=== PATIENT | female | born 1975 | race Hispanic/Latino ===

== ENCOUNTER 2016-11-21 13:14 | Emergency (ER) | payer BC ==
[2016-11-21 13:28] VITALS: BMI 27.4
[2016-11-21 13:32] VITALS: TEMP 99.3; O2SAT 100
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
[2016-11-21 15:32] LABS: BLOOD GAS HEMOGLOBIN 14.4 g/dL (11.7-17.4); CARBOXYHEMOGLOBIN 2.3 % (0.5-1.5); HHB 56.8 % (0-5); METHEMOGLOBIN 0.7 % (0.0-3.0); VENOUS BLOOD GAS BASE EXCESS -4.4 mmol/L (0.0-2.0); VENOUS BLOOD HGB O2 SAT 40.2 % (95.0-98.0); VENOUS BLOOD PH 7.34 (7.32-7.43)
[2016-11-21 16:08] VITALS: BP 124/79; PULSE 79; RESP 18
== END 2016-11-21 17:12 | disposition home or self-care (01) ==
LOC: ED 13:14
DX: Z77.29 Contact with and (suspected) exposure to other hazardous substances (principal)